=== PATIENT | male | born 1955 | race Caucasian/White ===

== ENCOUNTER → 2022-09-13 13:00 | Outpatient (CLI) | payer MEDICARE, SELFPAY ==
--- NOTE | 2022-09-13 | DI.NM.S_ITS ---
PROCEDURE: NM JAMSHID PERF SPECT REST & STR Rest and exercise myocardial perfusion SPECT with gated imaging and ejection fraction RADIOPHARMACEUTICAL: 27.1 mCi Tc-99m sestamibi IV at rest and 25.2 mCi Tc-99m sestamibi IV at peak exercise. A [id number] was performed. INDICATIONS: Essential (primary) hypertension; Other chest pain TECHNIQUE: Radiopharmaceutical was injected at peak stress test, and also at rest. SPECT images were obtained. SPECT myocardial perfusion images were displayed in short axis, horizontal long axis, and vertical long axis views. Gated images were reviewed using [employer] software. COMPARISON: None. CARDIAC STRESS: A standard Inder treadmill exercise tolerance test was performed by the patient under the supervision of an attending staff. The patient exercised for 6 minutes and 1 second; 7.0 METS; functional aerobic impairment (ROGER) is +18%. Hemodynamic data: There is normal blood pressure and heart rate response to exercise stress. Patient achieved 111% of maximum predicted heart rate at peak exercise. Maximum blood pressure 148/64. Symptoms: Patient denied chest pain during exercise. EKG: Rest ECG sinus tachycardia 126 bpm. Stress ECG sinus tachycardia 154 bpm, no ST segment changes; occasional PVCs. FINDINGS: Raw data: There is good myocardial labeling by radiotracer. No significant motion artifacts. Left ventricle function: Gated images demonstrate normal left ventricle wall thickening. No segmental wall motion abnormality. No transient ischemic dilation; TID is 0.3 (normal less than 1.3). The left ventricle resting end-diastolic volume is 84 mL. Left ventricle stress ejection fraction is 74%; normal values are above 45%. Myocardial perfusion: There is normal distribution of activity in the left and right ventricular myocardium. No fixed or reversible perfusion defects. IMPRESSION: Low risk study. No evidence of exercise-induced ischemia or scar on ECG or SPECT images. Baseline sinus tachycardia. Normal blood pressure response to exercise. Dictated by: Ana Lilia Vasques D.O. on 09/14/2022 at 16:24 Approved by: Ana Lilia Vasques D.O. on 09/14/2022 at 16:29
[2022-09-13 13:55] LABS: COVID19 -Nasal RAPID Negative (Negative)
== END ==
PROVIDERS: PCP Nurse Practitioner Family; Referring Provider Nurse Practitioner Family; Visit Provider Nurse Practitioner Family
DX: R07.89 Other chest pain (principal); R00.0 Tachycardia, unspecified; E11.9 Type 2 diabetes mellitus without complications; I10 Essential (primary) hypertension; Z20.822 Contact with and (suspected) exposure to COVID-19
CPT/HCPCS: 78452; 87635; 93017; A9502

== ENCOUNTER → 2022-11-21 10:53 | Outpatient (CLI) | payer MEDICARE, SELFPAY ==
--- NOTE | 2022-11-26 07:55 | PM.PFT.1 ---
Pulmonary Function Test Referral & Results Date Patient Seen: 11/21/22 Requesting provider: Brent Siu Results: The spirometry demonstrates an FVC of 4.14 L which is 84% of predicted. The FEV1 was measured at 2.64 L which is 72% of predicted. The FEV1/FVC ratio was 64 which is 86% of predicted. Following the administration of bronchodilator there was no notable change. Lung volumes show an SVC of 4.75 L which is 96% of predicted. The diffusing capacity was measured at 29.83 which is 85% of predicted. The maximum voluntary ventilation was reduced slightly Interpretation: This study demonstrates mild obstructive lung disease based on reduction FEV1 although FEV1/FVC ratio is relatively preserved. There really is no evidence of benefit following bronchodilator Lung volumes are normal Diffusing capacity is also probably normal Clinical correlation suggested
== END ==
PROVIDERS: PCP Nurse Practitioner Family; Referring Provider Internal Medicine Critical Care Medicine; Visit Provider Internal Medicine Critical Care Medicine
DX: J44.9 Chronic obstructive pulmonary disease, unspecified (principal); R91.1 Solitary pulmonary nodule; Z87.891 Personal history of nicotine dependence
CPT/HCPCS: 94060; 94726; 94729

== ENCOUNTER → 2022-11-23 10:02 | Outpatient (CLI) | payer MEDICARE, SELFPAY ==
--- NOTE | 2022-11-23 | DI.CT.S_ITS ---
PROCEDURE: CT CHEST WO CON INDICATIONS: LUNG NODULES TECHNIQUE: Noncontrast 2.0-2.5 mm thick sections acquired from the pulmonary apices to the posterior costophrenic angles. 7 mm thick axial MIP and 5 mm coronal and sagittal reformats were then acquired. A low radiation dose technique was utilized. COMPARISON: [facility], CT, CT VERAN CHEST, 12/13/2021, 12:44. Outside Film, CT, CT CHEST WITHOUT CONTRAST, 11/02/2021, 10:11. FINDINGS: Image quality: Diagnostic, given the low radiation dose technique. Lungs and pleura: Mild emphysematous change. A few small pulmonary nodules. For example: -Right middle lobe pulmonary nodules measuring 0.5 cm and 0.4 cm, (3/205), unchanged since 11/02/2021. -Lingular pulmonary nodule measuring 0.3 cm, (3/227), unchanged. No new or enlarging pulmonary nodules. No consolidation. The central airways are clear. Mediastinum: Heart size is normal. Moderate coronary artery calcifications. No pericardial effusion. No mediastinal adenopathy by size criteria. Thoracic aorta and central pulmonary arteries are normal in size. Esophagus is normal in caliber. No hiatal hernia. Bones and chest wall: No suspicious bony lesions. No vertebral body compression fractures. No axillary or supraclavicular adenopathy by size criteria. Thyroid gland is unremarkable. Abdomen: Visualized upper abdomen solid organs and bowel loops appear normal in the absence of contrast. IMPRESSION: 1. No new or enlarging pulmonary nodules. A few small pulmonary nodules measuring 0.5 cm or less are unchanged since 11/02/2021. 2. No acute airspace opacity. 3. Moderate coronary artery calcifications. Fleischner Society criteria for SOLID lung nodule followup. Nodule size (mm)Low-risk patientHigh-risk patient<6 (single or multiple)No routine followup.Optional CT at 12 months. 6-8 (single or multiple)CT at 6-12 months, then optional CT at 18-24 mo.CT at 6-12 months, then CT at 18-24 months. >8 (single)CT at 3 months, PET-CT, or biopsy. Same as for low-risk pts. >8 (multiple)CT at 3-6 months, then optional CT at 18-24 mo.CT at 3-6 months, then CT at 18-24 months. Fleischner Society criteria for SUB-SOLID lung nodule followup. Solitary pure ground-glass nodules<6 mm (ground glass or part solid)No followup needed. 6 mm or larger (ground glass)CT at 6-12 months to confirm persistence, then CT every 2 years until 5 years.6 mm or larger (part solid)CT at 3-6 months to confirm persistence, then annual CT until 5 years if unchanged and solid component remains <6 mm. Multiple sub-solid nodules<6 mmCT at 3-6 months, then CT consider at 2 & 4 years for high risk patients. [address] at 3-6 months. Subsequent management based on most suspicious lesions. Recommendations do not apply to lung cancer screening, patients with immunosuppression, or patients with known primary cancer. Dictated by: Vincent Underwood M.D. on 11/23/2022 at 10:59 Approved by: Vincent Underwood M.D. on 11/23/2022 at 11:09
== END ==
PROVIDERS: PCP Nurse Practitioner Family; Referring Provider Internal Medicine Critical Care Medicine; Visit Provider Internal Medicine Critical Care Medicine
DX: R91.8 Other nonspecific abnormal finding of lung field (principal); J44.9 Chronic obstructive pulmonary disease, unspecified; I25.10 Atherosclerotic heart disease of native coronary artery without angina pectoris
CPT/HCPCS: 71250